=== PATIENT | male | born 1950 | race Two or more races ===

== ENCOUNTER 2016-11-20 19:59 | Emergency (ER) | payer MEDICAID ==
--- NOTE | ~2016-11-20 | CR72 ---
[facility] A Service of [facility] RADIOLOGY TEXT RESULTS PATIENT: RONN ABREU LOCATION: [facility] : 54 UNIT #: [id number] AGE: [address]: Hattie Reardon MD SEX: M ORDER DR: [id number] [facility] [address] [place], [place] [address] [id number] E MR#: [id number] Acc #: [id number] NAME: RONN ABREU : 1950 SEX: M STUDY DATE/TIME: 11/20/2016 18:58 UNIT: [facility] ROOM: STUDY DESCRIPTION: CR Chest Single View Portable Attending Physician: Hattie Reardon M.D. Ordering Physician: Hattie Reardon M.D. Primary Care Physician: Levi Sears M.D. MEDICAL IMAGING REPORT This report is preliminary unless electronic signature is present EXAM Portable chest radiograph. DATE OF EXAM 11/20/2016 INDICATION Vomiting and dizziness for 3 days. FINDINGS Heart size is within normal limits for portable technique. No acute infiltrates are seen. There is no pneumothorax or pleural effusion, I do think the patient probably has some bibasilar atelectasis, left greater than right. Dictated by... Olivia Messer M.D. THIS IS AN ELECTRONICALLY VERIFIED REPORT Olivia Messer M.D. at 11/21/2016 10:38 AM ERUM/johny TD: 11/20/2016 20:01 JOB #: [id number] MEDICAL IMAGING REPORT Page 1 of 1 COPY
--- NOTE | ~2016-11-20 | EKG ---
PATIENT: RONN ABREU UNIT #: [id number] Ventricular Rate: 69 BPM Atrial Rate: 69 BPM P-R Interval: 138 ms QRS Duration: 96 ms Q-T Interval: 386 ms QTC Calculation(Bezet): 413 ms P Compton: 49 degrees Calculated R Compton: 52 degrees Calculated T Compton: 34 degrees Diagnosis Line: Poor data quality, interpretation may be Diagnosis Line: adversely affected Diagnosis Line: Normal sinus rhythm Diagnosis Line: Normal ECG Diagnosis Line: No previous ECGs available Diagnosis Line: Confirmed by ROBE HWANG MD ([id number]) on 11/21/2016 Diagnosis Line: 5:04:31 AM INTERPRETING MD: JAIDEN HENRIQUEZ
--- NOTE | ~2016-11-20 | CT17 ---
[facility] A Service of [facility] RADIOLOGY TEXT RESULTS PATIENT: RONN ABREU LOCATION: [facility] : 54 UNIT #: [id number] AGE: [address]: Hattie Reardon MD SEX: M ORDER DR: [id number] [facility] [address] [place], [place] [address] [id number] E MR#: [id number] Acc #: [id number] NAME: RONN ABREU : 1950 SEX: M STUDY DATE/TIME: 11/20/2016 19:23 UNIT: [facility] ROOM: STUDY DESCRIPTION: CT Angio Head Attending Physician: Hattie Reardon M.D. Ordering Physician: Hattie Reardon M.D. Primary Care Physician: Levi Sears M.D. MEDICAL IMAGING REPORT This report is preliminary unless electronic signature is present EXAM CT angiogram of the head and neck. HISTORY Dizziness, headache for 3 days. Hand numbness and visual disturbance. History of hypertension. Preliminary wet reading provided overnight by Dr. Kate 2022, 11/20/2016. TECHNIQUE CT angiography of the head and neck vessels performed during the intravenous administration of 100 mL of Isovue-370 with imaging obtained in the axial plane followed by multiple reconstructed and reformatted images for the purpose of 3-D CT angiography of the head and neck vessels. This CT exam was performed with one or more of the following radiation dose reduction techniques: automatic exposure control, adjustment of mA and/or kV according to patient size, and iterative reconstruction. COMPARISON STUDIES There is an earlier noncontrast head CT. COMMENT CT ANGIOGRAM NECK: There is some mild vascular calcification at the aortic arch and this includes some vascular calcification in the proximal left subclavian, in addition, is some noncalcified plaque. Evaluation of the right carotid system shows partially calcified plaque at right carotid bifurcation including the distal common, and external and proximal internal carotid artery. By NASCET criteria, there is about 54% diameter stenosis of the proximal right internal carotid artery about a centimeter above the bifurcation. Additionally, there is considerable vascular calcification in the right carotid siphon with probably [id number]-ru-[id number] stenosis. Mild stenosis of the proximal external carotid STS. [facility] A Service of [facility] RADIOLOGY TEXT RESULTS PATIENT: RONN ABREU [id number] : 54 UNIT #: [id number] AGE: [address]: Htatie Reardon MD SEX: M ORDER DR: artery, likely on the right. Assessment of the left carotid system shows partially calcified plaque at the left carotid bifurcation. Some of the noncalcified portion of the plaque is irregular/undermined and this raises concern for a possible thromboembolus source. By NASCET criteria, there is about 44% diameter stenosis at the origin. There is also vascular calcification at the left carotid siphon with probably mild narrowing. Assessment of the left vertebral artery shows vessel to be patent throughout the neck. I believe there is mild narrowing at its origin. Evaluation of the right vertebral artery shows vessel to be patent throughout the neck and I believe there is mild narrowing at its origin. Vertebral system is essentially codominant. Evaluation of the intracranial circulation shows no intracranial vascular cutoff. There is a small anterior communicator present. I believe there is mild narrowing at the origin of the left A1 vessel, probably also mild narrowing midportion of the basilar. No aneurysm is suspected allowing for the technical limitation of CT angiography for evaluation for aneurysm at the level of the skull base. Neither posterior communicator is seen. Dural venous sinuses are patent. Degenerative changes noted in the cervical spine. Emphysematous changes mild at the apices. There is dental disease with lucencies around multiple tooth roots. Recommend dental consultation. IMPRESSION 1. By NASCET criteria, there is about 54% stenosis proximal right internal carotid artery and 44% stenosis proximal left internal carotid artery due to partially calcified plaque. There is some irregularity of the noncalcified portion of the left-sided plaque which raises concern for a possible thromboembolus source. 2. Disease involving both carotid siphons with calcified atherosclerotic plaque seen with wfbr-[id number]-[id number] stenosis likely. 3. No intracranial vascular cutoff. Mild stenosis likely at the midportion of the basilar and at the origin of the left A1 vessel. 4. Evidence for significant dental disease and recommend followup with dental consultation. STAT * RESULT Dictated by... Helen Vincent M.D. THIS IS AN ELECTRONICALLY VERIFIED REPORT Helen Vincent M.D. at 11/21/2016 10:05 AM [facility] A Service of [facility] RADIOLOGY TEXT RESULTS PATIENT: RONN ABREU LOCATION: [facility] #: [id number] : 54 UNIT #: [id number] AGE: [address]: Hattie Reardon MD SEX: M ORDER DR: RENE/eduardo TD: 11/21/2016 09:34 JOB #: [id number] MEDICAL IMAGING REPORT Page 1 of 1 COPY
--- NOTE | ~2016-11-20 | CT23 ---
[facility] A Service of [facility] RADIOLOGY TEXT RESULTS PATIENT: RONN ABREU LOCATION: [facility] : 54 UNIT #: [id number] AGE: [address]: Hattie Reardon MD SEX: M ORDER DR: [id number] [facility] [address] [place], [place] [address] [id number] E MR#: [id number] Acc #: [id number] NAME: RONN ABREU : 1950 SEX: M STUDY DATE/TIME: 11/20/2016 19:23 UNIT: [facility] ROOM: STUDY DESCRIPTION: CT Angio Neck Attending Physician: Hattie Reardon M.D. Ordering Physician: Hattie Reardon M.D. Primary Care Physician: Levi Sears M.D. MEDICAL IMAGING REPORT This report is preliminary unless electronic signature is present EXAM CT angiogram of the neck. HISTORY Dizziness, headache for 3 days. Hand numbness and visual disturbance. History of hypertension. Preliminary wet reading provided overnight by Dr. Kate 2022, 11/20/2016. FINDINGS Please see CT angio head for results. Dictated by... Helen Vincent M.D. THIS IS AN ELECTRONICALLY VERIFIED REPORT Helen Vincent M.D. at 11/21/2016 10:05 AM RENE/eduardo TD: 11/21/2016 09:35 JOB #: [id number] MEDICAL IMAGING REPORT Page 1 of 1 COPY
[2016-11-20 17:16] LABS: BASOPHIL% 0.6 % (0-2.5); EOSINOPHIL# 0.4 X10e3 (0-0.7); EOSINOPHIL% 5.2 % (0.0-7.0); HEMATOCRIT 43.4 % (38.0-50.0); HEMOGLOBIN 14.4 gm/dL (13.0-16.0); LYMPHOCYTE# 2.5 X10e3 (1.0-3.5); LYMPHOCYTE% 29.3 % (17.0-45.0); MEAN CELL VOLUME 88.4 FL (83-96); MEAN CORPUSCULAR HEMOGLOBIN 29.3 PG (28-34); MEAN CORPUSCULAR HGB CONC 33.1 g/dL (30-36); MONOCYTE# 0.6 X10e3 (0-1.0); MONOCYTE% 6.6 % (3.0-12.0); NEUTROPHIL# 4.9 X10e3 (1.5-7.1); NEUTROPHIL% 58.3 % (40-75); PLATELET COUNT 220 X10e3 (140-420); RED BLOOD COUNT 4.91 X10e (3.90-5.60); RED CELL DISTRIBUTION WIDTH 14.4 % (11.0-15.5); WHITE BLOOD COUNT 8.5 X10e3 (4.0-10.5)
[2016-11-20 17:23] LABS: DIFF IND NO
[2016-11-20 17:39] LABS: ALBUMIN SERUM 4.4 g/dL (3.5-5.0); ALKALINE PHOSPHATASE 63 U/L (32-92); ALT (SGPT) 20 U/L (10-40); AST (SGOT) 18 U/L (10-42); BILIRUBIN,TOTAL 0.4 mg/dL (0.2-2.0); BLOOD UREA NITROGEN 19 mg/dL (9-23); BUN/CREATININE RATIO 17.27; CALCIUM SERUM 9.3 mg/dL (8.4-10.2); CARBON DIOXIDE 25 mmol/L (22-31); CHLORIDE 102 mmol/L (100-111); CREATININE SERUM 1.1 mg/dL (0.6-1.4); GLOM FILT RATE Estimated 70.6 mL/min (>60); GLUCOSE FASTING 98 mg/dL (70-110); POTASSIUM 4.3 mmol/L (3.5-5.1); PROTEIN TOTAL SERUM 7.7 g/dL (6.0-8.3); SODIUM 137 mmol/L (135-145)
[2016-11-20 17:47] LABS: BILIRUBIN, DIRECT <0.1 mg/dL (0.0-0.2); BILIRUBIN,INDIRECT 0.3 mg/dL (0.0-0.9)
[2016-11-20 18:29] LABS: POC - CKMB <1.0 ng/mL (0.0-7.9); POC - TROPONIN <0.05 ng/mL (<=0.05)
[2016-11-20 18:44] LABS: POC - CKMB <1.0 ng/mL (0.0-7.9); POC - TROPONIN <0.05 ng/mL (<=0.05)
[2016-11-20 18:46] LABS: POC - CKMB <1.0 ng/mL (0.0-7.9); POC - TROPONIN <0.05 ng/mL (<=0.05)
[2016-11-20 19:13] LABS: URINE APPEARANCE CLEAR; URINE BILIRUBIN NEG (NEG); URINE BLOOD NEG (NEG); URINE COLOR YELLOW; URINE GLUCOSE NEG (NEG); URINE KETONE NEG (NEG); URINE LEUKOCYTE ESTERASE NEG (NEG); URINE NITRATE NEG (NEG); URINE PROTEIN NEG (NEG); URINE UROBILINOGEN 0.2 MG/DL (NEG)
[2016-11-20 19:19] LABS: CULTURE INDICATED? NO
== END 2016-11-20 20:56 | disposition home or self-care (01) ==
LOC: CED 19:59
PROVIDERS: Emergency Medicine
DX: R51 Headache (principal); R42 Dizziness and giddiness; E78.00 Pure hypercholesterolemia, unspecified; I10 Essential (primary) hypertension
CPT/HCPCS: 36415; 70450; 70496; 70498; 71010; 80048; 80076; 81003; 82553; 84484; 85025; 93005; 96361; 96374; 96375; 99284; J1100; J1885; Q9967